=== PATIENT | female | born 1995 | race African-American/Black ===

== ENCOUNTER 2016-12-10 06:49 | Emergency (ER) | payer OTHER ==
[2016-12-10 07:59] LABS: MEAN CORPUSCULAR HEMOGLOBIN 29.8 pg (27.0-33.0); MEAN CORPUSCULAR HGB CONC 32.8 g/dl (32.0-36.5); RED CELL DISTRIBUTION WIDTH 12.6 % (11.5-14.5); WHITE BLOOD COUNT 5.1 K/mm3 (4.0-10.0)
[2016-12-10 08:10] LABS: CONTROL LINE HCG INT CTR LINE PRESENT
[2016-12-10 08:12] LABS: AMPHETAMINES LEVEL URINE NEGATIVE (NEGATIVE); BENZODIAZEPINES URINE NEGATIVE (NEGATIVE); COCAINE METABOLITE URINE NEGATIVE (NEGATIVE); CONTROL LINE INT CTR LINE PRESENT; METHADONE URINE NEGATIVE (NEGATIVE); OPIATES URINE NEGATIVE (NEGATIVE); TRICYCLIC ANTIDEPRESS URINE NEGATIVE (NEGATIVE)
[2016-12-10 08:25] LABS: ALBUMIN 3.9 GM/DL (3.2-5.2); ALBUMIN/GLOBULIN RATIO 1.05 (1.00-1.93); ALKALINE PHOSPHATASE 92 U/L (45-117); ALT/SGPT 26 U/L (12-78); ANION GAP 9 MEQ/L (8-16); AST/SGOT 21 U/L (15-37); BILIRUBIN,DIRECT 0.1 MG/DL (0.0-0.2); BILIRUBIN,TOTAL 0.4 MG/DL (0.2-1.0); BLOOD UREA NITROGEN 9 MG/DL (7-18); CARBON DIOXIDE LEVEL 26 MEQ/L (21-32); CHLORIDE LEVEL 107 MEQ/L (98-107); CREATININE FOR GFR 0.77 MG/DL (0.55-1.02); GLOMERULAR FILTRATION RATE > 60.0 (>60); GLUCOSE, FASTING 89 MG/DL (70-105); POTASSIUM SERUM 3.9 MEQ/L (3.5-5.1); SODIUM LEVEL 142 MEQ/L (136-145); TOTAL PROTEIN 7.6 GM/DL (6.4-8.2)
--- NOTE | 2016-12-10 08:57 | EDDOCDS ---
Physician Documentation [facility] Name: Maxine Restrepo Age: 21 yrs Sex: Female : 1995 Arrival Date: 12/10/2016 Time: 06:49 Bed [id number] Private MD: Disposition: 12/10/16 08:34 Discharged to Home/Self Care. Impression: Adjustment disorder with depressed mood. - Condition is Stable. - Discharge Instructions: Adjustment Disorder. - Medication Reconciliation, Local Pharmacy Hours form. - Follow up: Zamzam Moreno [facility]; When: Upon discharge from the Emergency Department. - Problem is new. - Symptoms have improved. Historical: - Allergies: no known allergies; - Home Meds: 1. none - PMHx: none; - PSHx: none; - Social history: Smoking status: Patient states was never smoker of tobacco. No barriers to communication noted, The patient speaks fluent Kenyan, Speaks appropriately for age, Preferred Language: Kenyan. - Family history: Not pertinent. - : The pt / caregiver states he / she is not on anticoagulants. Home medication list is obtained from the patient. - Exposure Risk Screening:: None identified. 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 6 in. (167.64 cm) (R); Pain 0/10; 08:48 BP 134 / 74; Pulse 70; Resp 16; Temp 97.4(T); Pulse Ox 97% on R/A; dy 07:03 Body Mass Index 22.27 (62.60 kg, 167.64 cm) lf1 MDM: 07:23 Consult PFS/PSA/Procurement Manager ordered. sd1 07:23 Consult PFS/PSA/Procurement Manager: Patient's case requires discussion with on-call sd1 Psychiatrist ordered. 07:23 PSA/PFS to call Nursing User Interface Developer, to enter patient data on [place] Safe Act if patient sd1 involuntarily admitted or transferred for SI or HI ordered. 07:23 Confirm accurate psychiatric medication list and times of last dosage ordered. sd1 07:23 Detain Pt Until Medically/PFS Cleared ordered. sd1 07:24 Acetaminophen Level Ordered. EDMS 07:24 Basic Metabolic Profile Ordered. EDMS 07:24 Complete Blood Count Ordered. EDMS 07:24 Drug Eval Toxicology ED Only Ordered. EDMS 07:24 Ethyl Alcohol (ethanol) Ordered. EDMS 07:24 HCG,Serum Qualitative Ordered. EDMS 07:24 Liver Profile Ordered. EDMS 07:24 Salicylate Level Ordered. EDMS 07:24 Thyroid Stimulating Hormone Ordered. EDMS 08:21 Complete Blood Count Reviewed. sd1 08:21 Drug Eval Toxicology ED Only Reviewed. sd1 08:21 HCG,Serum Qualitative Reviewed. sd1 08:27 Consult PFS/PSA/Procurement Manager complete. ca 08:29 Consult PFS/PSA/Procurement Manager: Patient's case requires discussion with on-call ca Psychiatrist complete. 08:29 PSA/PFS to call Nursing User Interface Developer, to enter patient data on [place] Safe [place] if patient ca involuntarily admitted or transferred for SI or HI complete. 08:34 Acetaminophen Level Reviewed. sd1 08:34 Salicylate Level Reviewed. sd1 08:34 Basic Metabolic Profile Reviewed. sd1 08:34 Ethyl Alcohol (ethanol) Reviewed. sd1 08:34 HCG,Serum Qualitative Reviewed. sd1 08:34 Liver Profile Reviewed. sd1 08:34 Thyroid Stimulating Hormone Reviewed. sd1 Signatures: Dispatcher [employer] Luci Mariano MD MD sd1 Cristal Palma PSA PSA Jesus Hebert, RN RN dy Fabby Yun RN RN lf1 MTDD
--- NOTE | 2016-12-10 08:58 | EDDOCDS ---
Nurse's Notes [facility] Name: Maxine Restrepo Age: 21 yrs Sex: Female : 1995 Arrival Date: 12/10/2016 Time: 06:49 Bed [facility] Private MD: Diagnosis: Adjustment disorder with depressed mood Presentation: 12/10 06:54 Presenting complaint: Patient states: Pt states last night she tried to cut herself, lf1 states she doesn't know if she was suicidal or not. When asked if she is feeling suicidal at this time pt .states "I'm upset, I don't know" Pt. present with superficial, linear cuts to left wrist. Denies HI Pt. denies pain at this time. Mental Health Triage Level: Level 2: The patient displays active suicidal ideations. Adult Sepsis Screening: The patient does not have new or worsening altered mentation. Patient's respiratory rate is less than 22. Systolic blood pressure is greater than 100. Patient has a qSOFA score of 0- Negative Sepsis Screen. Mental Health Triage Level: Level 2: The patient displays active suicidal ideations. Suicide/Homicide risk assessment- The patient admits to and/or has been reported to be having suicidal ideations. 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 Transition of care: patient was not received from another setting of care. 06:54 Acuity: NATALIA Level 3 lf1 06:54 Method Of Arrival: Walkin/Carried/Asstd lf1 Triage Assessment: 06:58 General: Appears in no apparent distress, Behavior is flat. Pain: Denies pain. HIV lf1 screening NA for this visit. Neurological: Level of Consciousness is awake, alert. EENT: No deficits noted. Respiratory: Respiratory effort is even, unlabored, Respiratory pattern is regular. GI: Denies nausea, vomiting. Derm: superficial linear cuts to left wrist. 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 none - PMHx: none; - PSHx: none; - Social history: Smoking status: Patient states was never smoker of tobacco. No barriers to communication noted, The patient speaks fluent Dominican, Speaks appropriately for age, Preferred Language: Dominican. - Family history: Not pertinent. - : The pt / caregiver states he / she is not on anticoagulants. Home medication list is obtained from the patient. - Exposure Risk Screening:: None identified. Screenin:54 Screening information is obtained from the patient. Fall risk: No risks identified. dy Assistance ADL's: requires no assistance with activities of daily living. Abuse/DV Screen: The patient / caregiver reports he/she is: not in a situation that causes fear, pain or injury. Nutritional screening: No deficits noted. Advance Directives: There is no active DNR order. home support is adequate. Assessment: 07:55 General: Appears in no apparent distress, Behavior is appropriate for age, cooperative. dy Pain: Denies pain. Neurological: Level of Consciousness is awake, alert, obeys commands, Oriented to person, place, time. Respiratory: Airway is patent Respiratory effort is even, unlabored. Derm: Skin is pink, warm & dry. Injury Description: Laceration sustained to left wrist is superficial, 0.5 to 2.5 cm long, not bleeding, multiple sites is bleeding a dressing was applied. 08:45 General: Appears in no apparent distress, Behavior is appropriate for age, cooperative. dy Pain: Denies pain. Vital Signs: 07:03 BP 143 / 73; Pulse 75; Resp 16; Temp 97.8(O); Pulse Ox 99% on R/A; Weight 62.6 kg (R); lf1 Height 5 ft. 6 in. (167.64 cm) (R); Pain 0/10; 08:48 BP 134 / 74; Pulse 70; Resp 16; Temp 97.4(T); Pulse Ox 97% on R/A; dy 07:03 Body Mass Index 22.27 (62.60 kg, 167.64 cm) 1 Vitals: 06:58 Log In Time: December 10, 2016 at 06:50. 1 ED Course: 06:50 Patient visited by Nolvia Mack Reg. hs2 06:50 Patient moved to Waiting hs2 06:53 Patient moved to [facility] lf1 06:58 Triage Initiated lf1 07:01 Jesus William, ROSEANNE is Primary Nurse. dy 07:04 Luci Stuart MD is Attending Physician. sd1 07:08 Patient visited by Luci Stuart MD. sd1 07:10 Patient visited by Nabil Kirby Security Aide. pjf 07:16 Patient visited by Nabil Kirby Security Aide. pjf 07:30 Patient visited by Nabil Kirby Security Aide. pjf 07:47 Patient visited by Nabil Kirby Security Aide. pjf 07:52 Acetaminophen Level Sent. dy 07:52 Basic Metabolic Profile Sent. dy 07:52 Complete Blood Count Sent. dy 07:52 Drug Eval Toxicology ED Only Sent. dy 07:52 Ethyl Alcohol (ethanol) Sent. dy 07:52 HCG,Serum Qualitative Sent. dy 07:53 The patient / caregiver is instructed regarding the plan of care and ED course. Patient dy has correct armband on for positive identification. Placed in psych safe attire. Bed in low position. Call light in reach. Side rails up X 1. Security observing. 07:53 Liver Profile Sent. dy 07:53 Salicylate Level Sent. dy 07:53 Thyroid Stimulating Hormone Sent. dy 07:56 Patient visited by Jesus William RN. dy 08:05 Patient visited by Nabil Kirby Security Aide. pjf 08:23 Patient visited by Nabil Kirby Security Aide. pjf 08:34 Zamzam Moreno [facility] is Referral Physician. sd1 08:45 No IV's were initiated during this patient's visit. No procedures done that require dy assistance. 08:56 Patient visited by Nabil Kirby Security Aide. pjf Order Results: Lab Order: Acetaminophen Level; SPEC'M 12/10/16 07:46 Test: ACETAMINOPHEN LEVEL; Value: < 2.0; Range: 10.0-30.0; Abnormal: Below low normal; Units: UG/ML; Status: F Lab Order: Basic Metabolic Profile; SPEC'M 12/10/16 07:46 Test: GLUCOSE, FASTING; Value: 89; Range: 70-105; Units: MG/DL; Status: F Test: BLOOD UREA NITROGEN; Value: 9; Range: 7-18; Units: MG/DL; Status: F Test: CREATININE FOR GFR; Value: 0.77; Range: 0.55-1.02; Units: MG/DL; Status: F Test: SODIUM LEVEL; Range: 136-145; Units: MEQ/L; Status: I Test: POTASSIUM SERUM; Range: 3.5-5.1; Units: MEQ/L; Status: I Test: CHLORIDE LEVEL; Range: 98-107; Units: MEQ/L; Status: I Test: CARBON DIOXIDE LEVEL; Range: 21-32; Units: MEQ/L; Status: I Test: ANION GAP; Range: 8-16; Units: MEQ/L; Status: I Test: CALCIUM LEVEL; Range: 8.5-10.1; Units: MG/DL; Status: I Test: GLOMERULAR FILTRATION RATE; Value: > 60.0; Range: >60; Status: F Test: SODIUM LEVEL; Value: 142; Range: 136-145; Units: MEQ/L; Status: F Test: POTASSIUM SERUM; Value: 3.9; Range: 3.5-5.1; Units: MEQ/L; Status: F Test: CHLORIDE LEVEL; Value: 107; Range: 98-107; Units: MEQ/L; Status: F Test: CARBON DIOXIDE LEVEL; Value: 26; Range: 21-32; Units: MEQ/L; Status: F Test: ANION GAP; Value: 9; Range: 8-16; Units: MEQ/L; Status: F Test: CALCIUM LEVEL; Value: 9.0; Range: 8.5-10.1; Units: MG/DL; Status: F Test Note: ; Units are mL/min/1.73 m2 Chronic Kidney Disease Staging per NKF: Stage I & II GFR >=60 Normal to Mildly Decreased Stage III GFR 30-59 Moderately Decreased Stage IV GFR 15-29 Severely Decreased Stage V GFR <15 Very Little GFR Left ESRD GFR <15 on NERVE SPECIALIST Lab Order: Complete Blood Count; SPEC'M 12/10/16 07:46 Test: WHITE BLOOD COUNT; Value: 5.1; Range: 4.0-10.0; Units: K/mm3; Status: F Test: RED BLOOD COUNT; Value: 4.12; Range: 4.00-5.40; Units: M/mm3; Status: F Test: HEMOGLOBIN; Value: 12.3; Range: 12.0-16.0; Units: g/dl; Status: F Test: HEMATOCRIT; Value: 37.5; Range: 36.0-47.0; Units: %; Status: F Test: MEAN CORPUSCULAR VOLUME; Value: 91.0; Range: 80.0-96.0; Units: fl; Status: F Test: MEAN CORPUSCULAR HEMOGLOBIN; Value: 29.8; Range: 27.0-33.0; Units: pg; Status: F Test: MEAN CORPUSCULAR HGB CONC; Value: 32.8; Range: 32.0-36.5; Units: g/dl; Status: F Test: RED CELL DISTRIBUTION WIDTH; Value: 12.6; Range: 11.5-14.5; Units: %; Status: F Test: PLATELET COUNT, AUTOMATED; Value: 211; Range: 150-450; Units: k/mm3; Status: F Lab Order: Drug Eval Toxicology ED Only; SPEC'M 12/10/16 07:46 Test: AMPHETAMINES LEVEL URINE; Value: NEGATIVE; Range: NEGATIVE; Status: F Test: BARBITURATES URINE; Value: NEGATIVE; Range: NEGATIVE; Status: F Test: BENZODIAZEPINES URINE; Value: NEGATIVE; Range: NEGATIVE; Status: F Test: CANNABINOIDS URINE; Value: NEGATIVE; Range: NEGATIVE; Status: F Test: COCAINE METABOLITE URINE; Value: NEGATIVE; Range: NEGATIVE; Status: F Test: METHADONE URINE; Value: NEGATIVE; Range: NEGATIVE; Status: F Test: OPIATES URINE; Value: NEGATIVE; Range: NEGATIVE; Status: F Test: TRICYCLIC ANTIDEPRESS URINE; Value: NEGATIVE; Range: NEGATIVE; Status: F Test Note: ; ALL PRESUMPTIVE POSITIVE FINDINGS ARE UNCONFIRMED NORMAL VALUES THRESHOLD IN NG/ML AMPHETAMINES 1000 METHAMPHETAMINES 1000 BARBITURATES 300 BENZODIAZEPINES 300 CANNABINOIDS (THC) 50 COCAINE METABOLITE 300 METHADONE 300 OPIATES 300 PHENCYCLIDINE 25 TRICYCLIC ANTIDEPRESSANTS 1000 RESULTS ARE FOR MEDICAL PURPOSES ONLY. ALL URINE SPECIMENS WILL BE SAVED FOR 3 DAYS. IF CONFIRMATION OF A PRESUMPTIVE POSTIVE SCREEN RESULT IS DESIRED, CALL CHEMISTRY ([phone]) AND REQUEST URINE TO BE SENT TO REFERENCE LAB. FOR A LIST OF CLOSELY RELATED COMPOUNDS PLEASE CALL THE LAB. Lab Order: Ethyl Alcohol (ethanol); SPEC'M 12/10/16 07:46 Test: ETHYL ALCOHOL (ETHANOL); Value: < 0.003; Range: 0.000-0.010; Units: %; Status: F Lab Order: HCG,Serum Qualitative; SPEC'M 12/10/16 07:46 Test: HCG, SERUM QUALITATIVE; Value: NEGATIVE; Range: NEGATIVE; Status: F Lab Order: Liver Profile; SPEC'M 12/10/16 07:46 Test: AST/SGOT; Value: 21; Range: 15-37; Units: U/L; Status: F Test: ALT/SGPT; Value: 26; Range: 12-78; Units: U/L; Status: F Test: ALKALINE PHOSPHATASE; Value: 92; Range: 45-117; Units: U/L; Status: F Test: BILIRUBIN,TOTAL; Value: 0.4; Range: 0.2-1.0; Units: MG/DL; Status: F Test: BILIRUBIN,DIRECT; Value: 0.1; Range: 0.0-0.2; Units: MG/DL; Status: F Test: TOTAL PROTEIN; Value: 7.6; Range: 6.4-8.2; Units: GM/DL; Status: F Test: ALBUMIN; Value: 3.9; Range: 3.2-5.2; Units: GM/DL; Status: F Test: ALBUMIN/GLOBULIN RATIO; Value: 1.05; Range: 1.00-1.93; Status: F Lab Order: Salicylate Level; SPEC'M 12/10/16 07:46 Test: SALICYLATE LEVEL; Value: < 1.7; Range: 5.0-30.0; Abnormal: Below low normal; Units: MG/DL; Status: F Lab Order: Thyroid Stimulating Hormone; SPEC'M 12/10/16 07:46 Test: THYROID STIMULATING HORMONE; Value: 1.780; Range: 0.358-3.740; Units: uIU/ML; Status: F Outcome: 08:34 Discharge ordered by Provider. sd1 08:45 Discharge Assessment: patient administered narcotics - no. The following High Risk dy Discharge criteria are identified: None. Discharged to [facility] with escort. Condition: stable. Discharge instructions given to patient, and doctors hospital escort Instructed on discharge instructions, follow up and referral plans. Demonstrated understanding of instructions, Pt was receptive of discharge instructions/ teaching. No special radiology studies were completed. Property sent home with patient. 08:57 Patient left the ED. dy Signatures: Luci Stuart MD MD sd1 Nabil Kirby, Security Aide Jesus Chan RN RN dy Yun,Fabby,RN RN lf1 Nolvia Mack, Reg Reg hs2 MTDD
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
--- NOTE | 2016-12-12 09:57 | EDDOCDS ---
Physician Documentation [facility] Name: Maxine Restrepo Age: 21 yrs Sex: Female : 1995 Arrival Date: 12/10/2016 Time: 06:49 Bed [facility]1 Private MD: Disposition: 12/10/16 08:34 Discharged to Home/Self Care. Impression: Adjustment disorder with depressed mood. - Condition is Stable. - Discharge Instructions: Adjustment Disorder. - Medication Reconciliation, Local Pharmacy Hours form. - Follow up: Zamzam Moreno [facility]; When: Upon discharge from the Emergency Department. - Problem is new. - Symptoms have improved. Historical: - Allergies: no known allergies; - Home Meds: 1. none - PMHx: none; - PSHx: none; - Social history: Smoking status: Patient states was never smoker of tobacco. No barriers to communication noted, The patient speaks fluent Gambian, Speaks appropriately for age, Preferred Language: Gambian. - Family history: Not pertinent. - : The pt / caregiver states he / she is not on anticoagulants. Home medication list is obtained from the patient. - Exposure Risk Screening:: None identified. 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 6 in. (167.64 cm) (R); Pain 0/10; 08:48 BP 134 / 74; Pulse 70; Resp 16; Temp 97.4(T); Pulse Ox 97% on R/A; dy 07:03 Body Mass Index 22.27 (62.60 kg, 167.64 cm) lf1 MDM: 07:23 Consult PFS/PSA/Biomedical Specialist ordered. sd1 07:23 Consult PFS/PSA/Biomedical Specialist: Patient's case requires discussion with on-call sd1 Psychiatrist ordered. 07:23 PSA/PFS to call Nursing Footwear Factory Worker, to enter patient data on [place] Safe [place] if patient sd1 involuntarily admitted or transferred for SI or HI ordered. 07:23 Confirm accurate psychiatric medication list and times of last dosage ordered. sd1 07:23 Detain Pt Until Medically/PFS Cleared ordered. sd1 07:24 Acetaminophen Level Ordered. EDMS 07:24 Basic Metabolic Profile Ordered. EDMS 07:24 Complete Blood Count Ordered. EDMS 07:24 Drug Eval Toxicology ED Only Ordered. EDMS 07:24 Ethyl Alcohol (ethanol) Ordered. EDMS 07:24 HCG,Serum Qualitative Ordered. EDMS 07:24 Liver Profile Ordered. EDMS 07:24 Salicylate Level Ordered. EDMS 07:24 Thyroid Stimulating Hormone Ordered. EDMS 08:21 Complete Blood Count Reviewed. sd1 08:21 Drug Eval Toxicology ED Only Reviewed. sd1 08:21 HCG,Serum Qualitative Reviewed. sd1 08:27 Consult PFS/PSA/Biomedical Specialist complete. ca 08:29 Consult PFS/PSA/Biomedical Specialist: Patient's case requires discussion with on-call ca Psychiatrist complete. 08:29 PSA/PFS to call Nursing Footwear Factory Worker, to enter patient data [place] Safe [place] if patient ca involuntarily admitted or transferred for SI or HI complete. 08:34 Acetaminophen Level Reviewed. sd1 08:34 Salicylate Level Reviewed. sd1 08:34 Basic Metabolic Profile Reviewed. sd1 08:34 Ethyl Alcohol (ethanol) Reviewed. sd1 08:34 HCG,Serum Qualitative Reviewed. sd1 08:34 Liver Profile Reviewed. sd1 08:34 Thyroid Stimulating Hormone Reviewed. sd1 09:14 [facility] Agreement was scanned into [employer] and attached to record. jp5 09:14 Financial registration complete. jp5 15:10 T-Sheet-- Draft Copy was scanned into [employer] and attached to record. gb Signatures: Dispatcher [facility] Luci Stuart MD MD sd1 Cristal Palma, PSA PSA ca Christin Joyce, Reg Reg gb Jesus William, RN RN Fabby Pryor,RN RN 1 Zeus Mendez jp5 The chart was reviewed and I authenticate all verbal orders and agree with the evaluation and treatment provided.Attachments: 09:14 [facility] Payment Agreement jp5 15:10 T-Sheet-- Draft Copy gb Chart Complete MTDD
--- NOTE | 2016-12-12 09:57 | EDDOCDS ---
Physician Documentation [facility] Name: Maxine Restrepo Age: 21 yrs Sex: Female : 1995 Arrival Date: 12/10/2016 Time: 06:49 Bed [facility]1 Private MD: Disposition: 12/10/16 08:34 Discharged to Home/Self Care. Impression: Adjustment disorder with depressed mood. - Condition is Stable. - Discharge Instructions: Adjustment Disorder. - Medication Reconciliation, Local Pharmacy Hours form. - Follow up: Zamzam Moreno [facility]; When: Upon discharge from the Emergency Department. - Problem is new. - Symptoms have improved. Historical: - Allergies: no known allergies; - Home Meds: 1. none - PMHx: none; - PSHx: none; - Social history: Smoking status: Patient states was never smoker of tobacco. No barriers to communication noted, The patient speaks fluent Swiss, Speaks appropriately for age, Preferred Language: Swiss. - Family history: Not pertinent. - : The pt / caregiver states he / she is not on anticoagulants. Home medication list is obtained from the patient. - Exposure Risk Screening:: None identified. 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 6 in. (167.64 cm) (R); Pain 0/10; 08:48 BP 134 / 74; Pulse 70; Resp 16; Temp 97.4(T); Pulse Ox 97% on R/A; dy 07:03 Body Mass Index 22.27 (62.60 kg, 167.64 cm) lf1 MDM: 07:23 Consult PFS/PSA/Commercial Interior Designer ordered. sd1 07:23 Consult PFS/PSA/Commercial Interior Designer: Patient's case requires discussion with on-call sd1 Psychiatrist ordered. 07:23 PSA/PFS to call Nursing Junior Qa Analyst, to enter [place] data [place] if patient sd1 involuntarily admitted or transferred for SI or HI ordered. 07:23 Confirm accurate psychiatric medication list and times of last dosage ordered. sd1 07:23 Detain Pt Until Medically/PFS Cleared ordered. sd1 07:24 Acetaminophen Level Ordered. EDMS 07:24 Basic Metabolic Profile Ordered. EDMS 07:24 Complete Blood Count Ordered. EDMS 07:24 Drug Eval Toxicology ED Only Ordered. EDMS 07:24 Ethyl Alcohol (ethanol) Ordered. EDMS 07:24 HCG,Serum Qualitative Ordered. EDMS 07:24 Liver Profile Ordered. EDMS 07:24 Salicylate Level Ordered. EDMS 07:24 Thyroid Stimulating Hormone Ordered. EDMS 08:21 Complete Blood Count Reviewed. sd1 08:21 Drug Eval Toxicology ED Only Reviewed. sd1 08:21 HCG,Serum Qualitative Reviewed. sd1 08:27 Consult PFS/PSA/Commercial Interior Designer complete. ca 08:29 Consult PFS/PSA/Commercial Interior Designer: Patient's case requires discussion with on-call ca Psychiatrist complete. 08:29 PSA/PFS to call Nursing Junior Qa Analyst, to enter [place] data [place] if patient ca involuntarily admitted or transferred for SI or HI complete. 08:34 Acetaminophen Level Reviewed. sd1 08:34 Salicylate Level Reviewed. sd1 08:34 Basic Metabolic Profile Reviewed. sd1 08:34 Ethyl Alcohol (ethanol) Reviewed. sd1 08:34 HCG,Serum Qualitative Reviewed. sd1 08:34 Liver Profile Reviewed. sd1 08:34 Thyroid Stimulating Hormone Reviewed. sd1 09:14 [facility] [place] Payment Agreement was scanned into [employer] and attached to record. jp5 09:14 Financial registration complete. jp5 15:10 T-Sheet-- Draft Copy was scanned into [employer] and attached to record. gb Signatures: Dispatcher [facility] Luci Stuart MD MD sd1 Cristal Palma, PSA PSA ca Christin Joyce, Reg Reg gb Jesus William, RN RN Fabby Pryor,RN RN 1 Zeus Mendez jp5 The chart was reviewed and I authenticate all verbal orders and agree with the evaluation and treatment provided.Attachments: 09:14 [facility] Payment Agreement jp5 15:10 T-Sheet-- Draft Copy gb Chart Complete MTDD
== END 2016-12-10 08:57 | disposition home or self-care (01) ==
LOC: M ED 06:49
DX: F43.21 Adjustment disorder with depressed mood (principal)
CPT/HCPCS: 36415; 80048; 80076; 80306; 84443; 84703; 85027; 99284; G0480

== ENCOUNTER 2016-12-14 09:38 | Emergency (ER) | payer OTHER ==
[2016-12-14] MEDS ORDERED: LIDOCAINE 1% MDV 20ML VIAL As Ordered ONE (10:07)
[2016-12-14] MEDS ORDERED: DERMABOND TOPICAL SKIN ADHESIVE As Ordered ONE (10:48)
[2016-12-14] MEDS ORDERED: ACETAMINOPHEN 325 MG TAB As Ordered ONE (10:50)
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
== END 2016-12-14 11:55 | disposition home or self-care (01) ==
LOC: M ED 09:38
DX: S01.311A Laceration without foreign body of right ear, initial encounter (principal); S40.022A Contusion of left upper arm, initial encounter; S40.021A Contusion of right upper arm, initial encounter; S70.11XA Contusion of right thigh, initial encounter; S00.90XA Unspecified superficial injury of unspecified part of head, initial encounter; X58.XXXA Exposure to other specified factors, initial encounter; Y92.019 Unspecified place in single-family (private) house as the place of occurrence of the external cause; Y93.83 Activity, rough housing and horseplay; Y99.8 Other external cause status

== ENCOUNTER 2017-06-23 10:05 | Emergency (ER) | payer OTHER ==
[~2017-06-23] VITALS: Ht 167.6 cm; Wt 69.7 kg
[2017-06-23 11:20] LABS: BASO % 0.6 % (0.0-1.0); EOS # 0.1 K/mm3 (0.0-0.50); EOS % 2.4 % (0.0-3.0); LARGE UNSTAINED CELL # 0.1 K/mm3 (0.0-0.4); LYMPH % 22.8 % (24.0-44.0); MEAN CORPUSCULAR HEMOGLOBIN 30.4 pg (27.0-33.0); MEAN CORPUSCULAR HGB CONC 33.1 g/dl (32.0-36.5); MEAN CORPUSCULAR VOLUME 91.8 fl (80.0-96.0); MONO # 0.3 K/mm3 (0.0-0.8); MONO % 8.3 % (0.0-5.0); NEUTROPHILS # 2.6 K/mm3 (1.8-7.7); NEUTROPHILS % 63.9 % (36.0-66.0); PLATELET COUNT, AUTOMATED 207 k/mm3 (150-450); RED CELL DISTRIBUTION WIDTH 12.6 % (11.5-14.5)
[2017-06-23 11:31] LABS: CONTROL LINE HCG INT CTR LINE PRESENT
[2017-06-23 11:46] LABS: ALBUMIN 3.8 GM/DL (3.2-5.2); ALBUMIN/GLOBULIN RATIO 0.95 (1.00-1.93); ALKALINE PHOSPHATASE 80 U/L (45-117); ALT/SGPT 31 U/L (12-78); ANION GAP 10 MEQ/L (8-16); AST/SGOT 16 U/L (15-37); BILIRUBIN,TOTAL 0.4 MG/DL (0.2-1.0); BLOOD UREA NITROGEN 10 MG/DL (7-18); CALCIUM LEVEL 9.2 MG/DL (8.5-10.1); CARBON DIOXIDE LEVEL 23 MEQ/L (21-32); CHLORIDE LEVEL 109 MEQ/L (98-107); CREATININE FOR GFR 0.74 MG/DL (0.55-1.02); GLOMERULAR FILTRATION RATE > 60.0 (>60); GLUCOSE, FASTING 77 MG/DL (70-105); POTASSIUM SERUM 4.4 MEQ/L (3.5-5.1); SODIUM LEVEL 142 MEQ/L (136-145); TOTAL PROTEIN 7.8 GM/DL (6.4-8.2)
[2017-06-23 12:05] LABS: HEPATITIS B SURFACE ANTIBODY POSITIVE (POSITIVE)
[2017-06-23] MEDS ORDERED: metroNIDAZOLE (FLAGYL) 500 MG TAB PO ONE (12:30)
[2017-06-23] MEDS ORDERED: AZITHROMYCIN 250 MG TAB PO ONE (12:30)
[2017-06-23] MEDS ORDERED: EXPOSURE KIT-ADULT 7 DAY SUPPLY PO ONE ×2 (12:30)
[2017-06-23] MEDS ORDERED: cefTRIAXone SOD 250 MG VIAL (J0696) IM ONE (12:30)
[2017-06-23] MEDS ORDERED: ULIPRISTAL ACETATE 30 MG TAB (ELLA) PO ONE (12:30)
[2017-06-23] MEDS ORDERED: TRUVTAB PO (12:45)
[2017-06-23] MEDS ORDERED: RALT40TA PO (12:46)
[2017-06-23] MEDS ORDERED: LIDOCAINE 1% MDV 20ML VIAL As Ordered ONE (12:49)
[2017-06-23 13:13] VITALS: BP 118/67
== END 2017-06-23 13:20 | disposition home or self-care (01) ==
LOC: M ED 10:05
DX: T76.21XA Adult sexual abuse, suspected, initial encounter (principal)
CPT/HCPCS: 80053; 84703; 85025; 86706; 86780; 86803; 87340; 87389; 96372; 99282; J0696

== ENCOUNTER 2017-07-21 11:43 | Inpatient (IN) | payer OTHER ==
[~2017-07-21] VITALS: Ht 167.6 cm; Wt 67.0 kg
[~2017-07-21 11:43] MED LIST: RALT40TA PO; TRUVTAB PO
[2017-07-21 12:53] LABS: MEAN CORPUSCULAR HEMOGLOBIN 30.4 pg (27.0-33.0); MEAN CORPUSCULAR HGB CONC 34.2 g/dl (32.0-36.5); RED CELL DISTRIBUTION WIDTH 12.1 % (11.5-14.5); WHITE BLOOD COUNT 4.2 K/mm3 (4.0-10.0)
[2017-07-21 13:20] LABS: METHADONE URINE NEGATIVE (NEGATIVE)
[2017-07-21 13:34] LABS: ALBUMIN/GLOBULIN RATIO 0.95 (1.00-1.93); ALKALINE PHOSPHATASE 87 U/L (45-117); ALT/SGPT 31 U/L (12-78); ANION GAP 6 MEQ/L (8-16); AST/SGOT 17 U/L (15-37); BILIRUBIN,DIRECT 0.1 MG/DL (0.0-0.2); BILIRUBIN,TOTAL 0.5 MG/DL (0.2-1.0); BLOOD UREA NITROGEN 10 MG/DL (7-18); CALCIUM LEVEL 9.2 MG/DL (8.5-10.1); CARBON DIOXIDE LEVEL 26 MEQ/L (21-32); CHLORIDE LEVEL 107 MEQ/L (98-107); CREATININE FOR GFR 0.75 MG/DL (0.55-1.02); GLOMERULAR FILTRATION RATE > 60.0 (>60); GLUCOSE, FASTING 89 MG/DL (70-105); POTASSIUM SERUM 4.1 MEQ/L (3.5-5.1); SODIUM LEVEL 139 MEQ/L (136-145); TOTAL PROTEIN 8.2 GM/DL (6.4-8.2)
[2017-07-21] MEDS ORDERED: traZODone 50 MG TAB PO PRN (16:15)
[2017-07-21] MEDS ORDERED: LORazepam 1 MG TAB PO PRN (16:15)
[2017-07-21] MEDS ORDERED: ACETAMINOPHEN TAB 650MG DOSE (2X325MG) PO PRN (16:15)
[2017-07-21] MEDS ORDERED: MOM 30ML SUSPENSION UDC PO PRN (16:15)
[2017-07-21] MEDS ORDERED: MAALOX 30 ML SUSP *UDC PO PRN (16:15)
[2017-07-21 16:45] LABS: CONTROL LINE HCG INT CTR LINE PRESENT
[2017-07-21] MEDS: risperiDONE 1 MG TAB PO SCH (21:00)
[2017-07-22 06:00] VITALS: BP 128/71
--- NOTE | 2017-07-22 08:57 | HPEPDOC ---
Medical History and Physical Date of Admission Jul 22, 2017 History and Physical PCP: [facility] ATTENDING: Dr. Jesus Ruiz HPI: 22yoF admitted to [facility] for unspecified depressive disorder, being medically examined today. No acute medical complaints today. Denies any fevers, chills, weakness, fatigue, CHAO, CP, SOB, cough, palpitations, abdominal pain, N/V /D or changes in bowel or bladder habits. 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 ROS: As noted in HPI, otherwise 11pt ROS of systems reviewed and remarkable only for LMP 07/20/17 PE: GEN: 22 yo F, appears stated age. Well-nourished, well developed. No acute distress. Alert and oriented x 3. Pleasant, interactive. HEENT: Normocephalic, atraumatic. Pupils are equal, round, and reactive to light. Extraocular movements are intact. No nystagmus appreciated. Sclera are nonicteric. Conjunctiva without injection. Nose midline. Nasal turbinates without bogginess. EACs both patent BL. TMs both visualized and addison with good cone of light, no bulging or erythema. No facial asymmetry. Moist mucous membranes. Dentition fair. Pharynx pink and moist, no cobblestoning. Neck supple , trachea midline. No lymphadenopathy or thyromegaly appreciated. CHEST: Regular rate and rhythm, +S1, +S2 LUNGS: Clear to auscultation bilaterally. No wheezes, rales, or rhonchi. Breathing appears symmetric and easy. Patient is speaking in full sentences. No accessory muscle use. ABD: Round, soft, non-tender, non-distended. +Bowel sounds throughout. No rebound or guarding. No costovertebral angle tenderness. EXT: Pulses 2+ bilaterally dorsalis pedis and radial. No lower extremity edema appreciated. SKIN: [place], dry, warm. Capillary refill <2sec. No rashes. NEURO: Alert and oriented x 3. Cranial nerves III-XII are intact. No focal deficits appreciated. EKG: pending. A&P: 22yoF admitted to [facility] for unspecified depressive disorder 1. Psych. Plan per Psychiatry. Obtain baseline EKG to assure the safety of psychiatric medications as they can prolong the QT interval. 2. Follow up with PCP on discharge. 3. Staff member Barbara CRONIN present throughout exam. Vital Signs Vital Signs Date Time Temp Pulse Resp B/P (MAP) Pulse Ox O2 Delivery O2 Flow Rate FiO2 07/22/17 06:00 99.8 102 16 128/71 (90) 07/21/17 16:47 98 Room Air Laboratory Data Labs 24H Laboratory Tests 2 07/21/17 12:35: Anion Gap 6L, Glomerular Filtration Rate > 60.0, Calcium Level 9.2, Aspartate Amino Transf (AST/SGOT) 17, Alanine Aminotransferase (ALT/SGPT) 31, Alkaline Phosphatase 87, Total Bilirubin 0.5, Direct Bilirubin 0.1, Total Protein 8.2, Albumin 4.0, Albumin/Globulin Ratio 0.95L, Thyroid Stimulating Hormone (TSH) 0.897, Human Chorionic Gonadotropin, Qual NEGATIVE, Salicylates Level < 1.7L, Urine Amphetamines Screen NEGATIVE, Urine Benzodiazepines Screen NEGATIVE, Urine Opiates Screen NEGATIVE, Urine Methadone Screen NEGATIVE, Acetaminophen Level < 2.0L, Urine Barbiturates Screen NEGATIVE, Urine Phencyclidine Screen NEGATIVE, Urine Cocaine Metabolite Screen NEGATIVE, Urine Cannabinoids Screen NEGATIVE, Ethyl Alcohol Level < 0.003 CBC/BMP Laboratory Tests 07/21/17 12:35 Red Blood Count 4.45, Mean Corpuscular Volume 89.0, Mean Corpuscular Hemoglobin 30.4, Mean Corpuscular Hemoglobin Concent 34.2, Red Cell Distribution Width 12.1 Home Medications No Active Prescriptions or Reported Meds Allergies Coded Allergies: No Known Allergies (Unverified , 06/23/17) Rafaela Frazier Jul 22, 2017 08:57
[2017-07-22] MEDS: CitaloPRAM (CeleXA) 20 MG TAB PO SCH (10:30)
[2017-07-22] MEDS: risperiDONE 0.5 MG TAB PO SCH (10:30)
[2017-07-22 18:00] VITALS: BP 102/58
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
[2017-07-22] MEDS: risperiDONE 1 MG TAB PO SCH (21:57)
--- NOTE | 2017-07-22 22:27 | ECGEPIP ---
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
[2017-07-23 06:52] VITALS: BP 108/57
[2017-07-23] MEDS: risperiDONE 0.5 MG TAB PO SCH ×2 (09:52→21:06)
[2017-07-23] MEDS: CitaloPRAM (CeleXA) 20 MG TAB PO SCH (09:52)
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
[2017-07-23 18:24] VITALS: BP 115/67
[2017-07-24 07:00] VITALS: BP 124/73
[2017-07-24] MEDS: risperiDONE 0.5 MG TAB PO SCH ×2 (08:42→20:50)
[2017-07-24] MEDS: CitaloPRAM (CeleXA) 20 MG TAB PO SCH (08:42)
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
[2017-07-24 18:00] VITALS: BP 128/82
[2017-07-25 06:21] VITALS: BP 135/72
[2017-07-25 06:37] VITALS: BP 135/72
[2017-07-25] MEDS: CitaloPRAM (CeleXA) 20 MG TAB PO SCH (09:10)
[2017-07-25] MEDS: risperiDONE 0.5 MG TAB PO SCH ×2 (09:10→21:04)
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
[2017-07-25 18:24] VITALS: BP 132/72
[2017-07-26 07:08] VITALS: BP 129/74
[2017-07-26] MEDS: CitaloPRAM (CeleXA) 20 MG TAB PO SCH (08:14)
[2017-07-26] MEDS: risperiDONE 0.5 MG TAB PO SCH ×2 (08:14→20:52)
[2017-07-26 18:18] VITALS: BP 129/72
[2017-07-27 06:22] VITALS: BP 136/71
[2017-07-27] MEDS: CitaloPRAM (CeleXA) 20 MG TAB PO SCH (08:06)
[2017-07-27] MEDS: risperiDONE 0.5 MG TAB PO SCH ×2 (08:06→20:46)
[2017-07-27 18:22] VITALS: BP 126/65
[2017-07-28 06:40] VITALS: BP 125/72
[2017-07-28] MEDS: CitaloPRAM (CeleXA) 20 MG TAB PO SCH (08:03)
[2017-07-28] MEDS: risperiDONE 0.5 MG TAB PO SCH (08:03)
[2017-07-28] MEDS ORDERED: TRAZO50TA PO (09:50)
[2017-07-28] MEDS ORDERED: RISP0.5T21 PO (09:50)
[2017-07-28] MEDS ORDERED: CELE20TA PO (09:50)
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
== END 2017-07-28 12:00 | disposition home or self-care (01) | DRG 882 ==
LOC: M ED 11:43 → M ED INP 16:15 → M PSY 17:00
PROVIDERS: ADMIT Psychiatry & Neurology Psychiatry; ATTEND Psychiatry & Neurology Psychiatry
DX: F43.10 Post-traumatic stress disorder, unspecified (principal); F60.9 Personality disorder, unspecified

== ENCOUNTER 2017-08-01 10:30 | Emergency (ER) | payer OTHER ==
[~2017-08-01] VITALS: Ht 167.6 cm; Wt 71.4 kg
[~2017-08-01 10:30] MED LIST changes: +CELE20TA PO; +RISP0.5T21 PO; +TRAZO50TA PO
[2017-08-01] MEDS ORDERED: CITA20TA4 (10:40)
[2017-08-01] MEDS ORDERED: TRAZ50TA11 (10:40)
[2017-08-01] MEDS ORDERED: RISP0.5T3 (10:40)
[2017-08-01] MEDS ORDERED: IBUPROFEN 800 MG TAB PO ONE (12:15)
[2017-08-01] MEDS ORDERED: NS 1,000 ML IV ONE (13:15)
[2017-08-01 13:28] LABS: BASO % 0.2 % (0.0-1.0); EOS % 0.1 % (0.0-3.0); IMMATURE GRANULOCYTE % 0.6 % (0-0); LYMPH # 0.9 10^3/uL (1.5-6.5); LYMPH % 5.3 % (24.0-44.0); MEAN CORPUSCULAR HEMOGLOBIN 29.8 pg (27.0-33.0); MEAN CORPUSCULAR HGB CONC 33.6 g/dl (32.0-36.5); MEAN CORPUSCULAR VOLUME 88.6 fl (80.0-96.0); MONO # 1.4 10^3/uL (0.0-0.8); MONO % 7.9 % (0.0-5.0); NEUTROPHILS # 15.1 10^3/uL (1.8-7.7); NEUTROPHILS % 85.9 % (36.0-66.0); PLATELET COUNT, AUTOMATED 206 10^3/uL (150-450); WHITE BLOOD COUNT 17.5 10^3/uL (4.0-10.0)
[2017-08-01 13:47] LABS: ANION GAP 7 MEQ/L (8-16); BLOOD UREA NITROGEN 8 MG/DL (7-18); CALCIUM LEVEL 8.9 MG/DL (8.5-10.1); CARBON DIOXIDE LEVEL 25 MEQ/L (21-32); CHLORIDE LEVEL 103 MEQ/L (98-107); GLOMERULAR FILTRATION RATE > 60.0 (>60); GLUCOSE, FASTING 89 MG/DL (70-105); POTASSIUM SERUM 3.9 MEQ/L (3.5-5.1); SODIUM LEVEL 135 MEQ/L (136-145)
--- NOTE | 2017-08-01 14:21 | REP ---
CHEST, TWO VIEWS: There is no evidence of acute infiltrate. No pleural effusion is seen. The heart is normal in size. The mediastinal silhouette is unremarkable. The visualized osseous structures are intact. IMPRESSION: No acute pulmonary disease. Signed by Juan Miguel Joseph MD 08/01/2017 05:19 P
[2017-08-01] MEDS ORDERED: MORPHINE 4 MG/ML 1ML SYRINGE IV ONE (15:00)
[2017-08-01] MEDS ORDERED: ISOVUE-370 76% 100ML VIAL (Q9967) As Ordered ONE (15:12)
[2017-08-01] MEDS ORDERED: ONDANSETRON 4MG/2ML VIAL (J2405) IV ONE (15:15)
--- NOTE | 2017-08-01 16:10 | REP ---
CT ABDOMEN AND PELVIS WITH IV CONTRAST: TECHNIQUE: Axial contrast enhanced images from the lung bases to the pubic symphysis using 100 mL Isovue 370 intravenous contrast material with multiplanar reformations. Visualized lung bases are clear. Liver, spleen, adrenals, pancreas, and kidneys are unremarkable in appearance. There is no hydronephrosis. There is no abdominal aortic aneurysm. There is no adenopathy. There is no free air. There is no bowel wall thickening is seen. The appendix is normal. There is no definite pelvic mass. Trace free fluid is seen in the pelvis which is likely physiologic in nature. IMPRESSION: No acute abnormalities. Signed by Juan Miguel Joseph MD 08/01/2017 05:23 P
[2017-08-01] MEDS ORDERED: CLINDAMYCIN 900 MG in APPROPRIATE DILUENT 1 EA IV ONE (16:45)
[2017-08-01 17:05] LABS: CONTROL LINE MONO RF C INT CTR LINE PRESENT
[2017-08-01] MEDS ORDERED: PROM25TA PO (18:00)
[2017-08-01] MEDS ORDERED: CLEO300C2 PO (18:00)
[2017-08-01] MEDS ORDERED: IBUP-1022 PO (18:00)
[2017-08-01 18:10] VITALS: BP 117/65
[2017-08-05 10:22] LABS: CYTOMEGALOVIRUS IgG ANTIBODY <0.60 U/mL (0.00-0.59)
== END 2017-08-01 18:11 | disposition home or self-care (01) ==
LOC: M ED 10:30
DX: J03.90 Acute tonsillitis, unspecified (principal); R11.0 Nausea; R10.9 Unspecified abdominal pain
CPT/HCPCS: 36415; 71020; 74177; 80048; 81001; 81025; 83690; 85025; 86308; 86644; 86645; 86663; 86664; 86665; 87086; 87880; 96374; 96375; 99284; J2405; Q9967

== ENCOUNTER 2017-08-24 20:08 | Emergency (ER) | payer OTHER ==
[~2017-08-24] VITALS: Ht 167.6 cm; Wt 71.4 kg
[~2017-08-24 20:08] MED LIST changes: +CITA20TA4; +CLEO300C2 PO; +IBUP-1022 PO; +PROM25TA PO; +RISP0.5T3; +TRAZ50TA11
[2017-08-24] MEDS ORDERED: IBUP-1022 PO (22:53)
[2017-08-24] MEDS ORDERED: IBUPROFEN 800 MG TAB PO ONE (23:00)
[2017-08-24 23:08] VITALS: BP 122/64
--- NOTE | 2017-08-25 07:57 | REP ---
Right hip single AP view : There is no fracture or dislocation. Mineralization and joint spaces are normal. There are no calcifications or foreign bodies. Impression: Negative right hip . Signed by Juan Miguel Bowling MD 08/25/2017 07:48 A
== END 2017-08-24 23:09 | disposition home or self-care (01) ==
LOC: M ED 20:08
DX: S70.01XA Contusion of right hip, initial encounter (principal); M70.61 Trochanteric bursitis, right hip; W19.XXXA Unspecified fall, initial encounter; Y92.099 Unspecified place in other non-institutional residence as the place of occurrence of the external cause; Y93.89 Activity, other specified; Y99.9 Unspecified external cause status